=== PATIENT | male | born 1985 | race Two or more races ===

== ENCOUNTER 2016-04-29 17:59 | Emergency (ER) | payer SELFPAY ==
--- NOTE | 2016-04-29 20:09 | EDPHY ---
H & P Smoking Status: Current some day smoker Time Seen by Provider: 04/29/16 18:25 HPI/ROS: CHIEF COMPLAINT: lip laceration HISTORY OF PRESENT ILLNESS: 30-year-old otherwise healthy male presents emergency department with a laceration to his upper lip. Patient was running for the bus this afternoon when he tripped and hit his face on a concrete ledge. Patient denies loss of consciousness, remembers the entire accident, no nausea or vomiting, no headache, no neck pain. He denies other complaints, reports his teeth fit together without difficulty and he can open and close his mouth without pain. Tetanus is up-to-date. REVIEW OF SYSTEMS: A comprehensive 10 point review of systems is otherwise negative aside from elements mentioned in the history of present illness. (Saundra Arreola) Physical Exam: Physical Exam Gen: Alert and Oriented, NAD HEENT: PERRL, moist mucous membranes, no TMJ tenderness, no loose teeth NECK: No C-spine tenderness CV: regular rate and regular rhythm PULM: CTAB, no wheezes ABDOMEN: soft, non tender to palpation, BS present BACK: No CVA tenderness NEURO: Neurologically grossly intact EXTREMITIES: normal appearing SKIN: 1 cm through and through laceration to left side of upper lip, contusion/ abrasion to inside of lower lip PSYCH: answers questions appropriately. (Saundra Arreola) Constitutional: Initial Vital Signs Temperature (C) 36.6 C 04/29/16 18:07 Heart Rate 84 04/29/16 18:07 Respiratory Rate 16 04/29/16 18:07 Blood Pressure 124/69 H 04/29/16 18:07 O2 Sat (%) 93 04/29/16 18:07 O2 Delivery Mode Room Air Allergies/Adverse Reactions: No Known Allergies Allergy (Unverified 04/29/16 18:07) Home Medications: Medication Instructions Recorded NK [No Known Home Meds] 04/29/16 MDM/Departure - MDM Procedures: Procedure: Laceration repair. Verbal consent was obtained from the patient. The a 1 cm laceration on the upper lip was anesthetized using 1% lidocaine without epinephrine. The wound was carefully irrigated by the emergency department environmental laboratory technician. Next, the wound was prepped and draped in sterile fashion and explored to its base with a gloved finger. There were no deep structures involved. No vascular injury was identified. No foreign bodies were identified. The wound was repaired with 6.0 Prolene, 7. Simple interrupted sutures. The wound repair was simple. The procedure was performed by myself. Tetanus and antibiotic status were addressed. (Saundra Arreola) ED Course/Re-evaluation: This patient presents after a minor head injury with no headache, amnesia or LOC. Neurologic exam normal. No indication for neuro imaging. [facility] precautions given. (Saundra Arreola) The patient wasevaluatedand managed by thempalevel provider. My co- signature indicates that bassam reviewed this chart and I agree with the findings and plan of care asdocumented. I am the secondary supervising physician. (Kindra Turner) Differential Diagnosis: The differential diagnosis for the patient's head injury included but was not limited to concussion, skull fracture, intra-parenchymal contusion, subarachnoid , subdural and epidural hematoma. (Saundra Arreola) - Depart Disposition: Home, Routine, Self-Care Clinical Impression: Lip laceration Qualifiers: Encounter type: initial encounter Qualifier Code: (S01.511A) Laceration without foreign body of lip, initial encounter Condition: Good Instructions: Facial Laceration (ED), Head Injury (ED) Additional Instructions: Return to the emergency department in 5-7 days for suture removal, return sooner for any signs of infection. Return for any signs of a head injury such as forceful vomiting, confusion, altered gait, any other questions or concerns. Regresar al departamento de emergencias en 5-7 peres para remover las puntadas, regrese en cuanto antes por senales de infeccion. Regrese por cualquier senal de susan lesion en la chelsi, cabrera vomitos nigel, confusion, alteracion en el modo de caminar, cualquier otra pregunta o preocupacion. Referrals: NONE *PRIMARY CARE P,. [Primary Care Provider] - As per Instructions Print Language: [place]
[2016-04-29 20:29] VITALS: BP 121/70; PULSE 76; RESP 13; TEMP 99; O2SAT 94
== END 2016-05-08 19:26 | disposition home or self-care (01) ==
PROC: 0CQ0XZZ Repair Upper Lip, External Approach (ICD-10-PCS; principal; 2016-04-29)
DX: S01.511A Laceration without foreign body of lip, initial encounter (principal); F17.200 Nicotine dependence, unspecified, uncomplicated; W01.198A Fall on same level from slipping, tripping and stumbling with subsequent striking against other object, initial encounter; Y92.89 Other specified places as the place of occurrence of the external cause; Y93.02 Activity, running